=== PATIENT | male | born 1970 | race African-American/Black ===

== ENCOUNTER 2020-06-25 02:03 | Emergency (ER) | payer OTHER ==
[~2020-06-25] VITALS: Ht 180.3 cm; Wt 104.3 kg
[2020-06-25] MEDS ORDERED: LISINOPRIL20 MG PO (03:54)
[2020-06-25] MEDS ORDERED: NEURONTIN 300M300 M2 PO (03:55)
[2020-06-25] MEDS ORDERED: ABILIFY20 MG PO (03:55)
[2020-06-25] MEDS ORDERED: OMEPRAZOLE 20 M20 M1 PO (03:55)
[2020-06-25] MEDS ORDERED: METFORMIN HCL500 M3 PO (03:56)
[2020-06-25] MEDS ORDERED: LORATIDINE 10 M10 M1 PO (03:56)
[2020-06-25 04:00] LABS: ANION GAP 9 mmol/L (7-16); BASOPHILS 0.6 % (0.0-2.0); BUN 9 mg/dL (7-18); CALCIUM 8.7 mg/dL (8.5-10.1); CHLORIDE 105 mmol/L (98-107); CO2 29 mmol/L (21-32); CREATININE 0.9 mg/dL (0.7-1.3); EOSINOPHILS 1.6 % (0.0-3.0); GLUCOSE 102 mg/dL (74-106); HEMATOCRIT 39.8 % (42.0-52.0); HEMOGLOBIN 12.6 gm/dL (14.0-18.0); LYMPHOCYTES 26.9 % (24.0-44.0); MCH 28.8 pg (26.0-34.0); MCHC 31.8 g/dL (28.0-37.0); MCV 90.5 fL (80.0-100.0); MONOCYTES 4.1 % (1.0-8.0); PLATELET COUNT 270 thou/uL (150-400); POLYS 66.8 % (36.0-66.0); POTASSIUM 3.8 mmol/L (3.5-5.1); RBC 4.39 mil/uL (4.50-6.00); RDW 13.4 % (10.5-14.5); SODIUM 143 mmol/L (136-145)
[2020-06-25 04:10] LABS: ALBUMIN 3.5 g/dL (3.4-5.0); LIPASE 204 U/L (73-393); SGOT 20 U/L (15-37); SGPT 14 U/L (30-65); TOTAL BILIRUBIN 0.8 mg/dL (0.2-1.0); TOTAL PROTEIN 6.9 g/dL (6.4-8.2); TROPONIN-I <0.06 ng/mL (<0.06)
[2020-06-25 04:43] VITALS: BP 144/82
--- NOTE | 2020-06-25 11:06 | EKG ---
[facility] [place] [address] ELECTROCARDIOGRAM REPORT Name: NGUYEN PENG Room #: DEP ALFONSO Yan#: [id number] Admission: 06/25/20 Attend Phys: Discharge: 06/25/20 Date of : 68 Report #: [id number] [facility] ED Test Date: 2020-06-25 Test Time: 03:46:46 Pat Name: NGUYEN PENG Department: Room: Gender: M [employer]: MAR : 1970 Requested By: Josiah Cummings Order Number: [id number] MD: Poncho Benson Measurements Intervals [place] Rate: 55 P: 86 GA: 149 QRS: 14 QRSD: 111 T: 11 QT: 391 QTc: 374 Interpretive Statements Sinus rhythm Incomplete left bundle branch block ST elev, probable normal early repol pattern Compared to ECG 01/22/2003 02:10:03 Left bundle-branch block now present Sinus bradycardia no longer present ST (T wave) deviation still present Electronically Signed On 06-25-2020 11:06:08 CDT by Poncho Benson [email or web address] <ELECTRONICALLY SIGNED> By: Poncho Benson MD 06/25/20 [id number] Poncho Benson MD /EPI
== END 2020-06-25 06:15 | disposition home or self-care (01) ==
LOC: ER 02:03
PROVIDERS: Emergency Medicine
DX: R53.83 Other fatigue (principal); I10 Essential (primary) hypertension; E11.9 Type 2 diabetes mellitus without complications; Z79.899 Other long term (current) drug therapy; Z88.0 Allergy status to penicillin; Z88.6 Allergy status to analgesic agent